=== PATIENT | male | born 1955 | race Caucasian/White ===

== ENCOUNTER 2024-03-25 17:03 | Emergency (ER) | payer OTHER, SELFPAY ==
[2024-03-25 17:08] VITALS: BP 177/92; PULSE 53; RESP 18; TEMP 36.6; O2SAT 97
--- NOTE | 2024-03-25 17:31 | ED_ITS ---
HPI - General Adult General Chief complaint: Urogenital Problems, Male Stated complaint: needs catheter Time Seen by Provider: 03/25/24 17:16 Source: patient Mode of arrival: ambulatory Limitations: no limitations History of Present Illness HPI narrative: 68-year-old male presenting to the ED today requesting Daley catheter placement. Patient states that his senior coldfusion developer said to come to the ER to have this done. I did call the patient's senior coldfusion developer, Dr. Ambriz, who stated that patient was seen today and had a post void residual of 700 mL. She believes that he has BPH that is poorly controlled and causing urinary retention. However an ultrasound done today also showed mild bilateral hydronephrosis and his creatinine went from 1-2.7 in 1 week's time. Patient's doctor states that no repeat labs necessary today as she just did them yesterday and that he should indeed have an indwelling catheter placed. Patient is otherwise stable. Denies abdominal pain. Denies fevers or chills. No nausea or vomiting. Appetite has been normal. Patient is quite anxious about having a Daley placed. Related Data Allergies Allergy/AdvReac Type Severity Reaction Status Date / Time amoxicillin Allergy Unknown Verified 03/25/24 17:16 Penicillins Allergy Unknown Verified 03/25/24 17:16 Review of Systems Status of ROS: Reports: 10 or more systems reviewed and unremarkable except as noted in History and below Exam Narrative: Exam Narrative: Well-nourished well-developed patient, slightly anxious. Alert and oriented. Answers questions appropriately. Mood and affect are appropriate. Thoughts are goal oriented and rational. No tangential or magical thinking noted. Patient speaks in full sentences without needing to catch his breath. HEENT: Normocephalic atraumatic. Pupils are equally round reactive to light. Extraocular muscles are intact. Conjunctivae are moist without any icterus noted. Moist mucous membranes. Cardiovascular: Heart is regular rate and rhythm. Lungs: Clear to auscultation bilaterally. Abdomen: Soft and nontender with normal bowel sounds. Abdomen slightly distended. Skin: Well perfused. Const: Vital Signs, click to edit/add: Vital Signs - 24 hr 03/25/24 17:08 Temperature 97.8 F Pulse Rate [Right Pulse Oximeter] 53 L Respiratory Rate 18 Blood Pressure [Ri ght Upper Arm] 177/92 H Pulse Oximetry 97 Oxygen Delivery Me thod Room Air Course Course ED Course: Indwelling catheter placed by nursing and daley education provided. Placement of Daley was difficult. 1200 mL of urine was removed once Daley was placed. Vital Signs Vital signs: Initial Vital Signs Temperature 97.8 F 03/25/24 17:08 Temperature Source Temporal Artery Scan 03/25/24 17:08 Pulse Rate 53 L 03/25/24 17:08 Pulse Rhythm Regular 03/25/24 17:08 Pulse Strength 3+ Normal 03/25/24 17:08 Respiratory Rate 18 03/25/24 17:08 Blood Pressure 177/92 H 03/25/24 17:08 Blood Pressure Mean 120 H 03/25/24 17:08 Blood Pressure Position Sitting 03/25/24 17:08 Pulse Oximetry 97 03/25/24 17:08 Oxygen Delivery Method Room Air 03/25/24 17:08 Vital Signs Temperature 97.8 F 03/25/24 17:08 Pulse Rate 53 L 03/25/24 17:08 Respiratory Rate 18 03/25/24 17:08 Blood Pressure 177/92 H 03/25/24 17:08 Pulse Oximetry 97 03/25/24 17:08 Oxygen Delivery Method Room Air 03/25/24 17:08 Temperature 97.8 F 03/25/24 17:08 Pulse Rate 53 L 03/25/24 17:08 Respiratory Rate 18 03/25/24 17:08 Blood Pressure 177/92 H 03/25/24 17:08 Pulse Oximetry 97 03/25/24 17:08 Oxygen Delivery Method Room Air 03/25/24 17:08 Medical Decision Making MDM Narrative Medical decision making narrative: Urinary retention. Daley placed. Follow-up with senior coldfusion developer and urology team. Discharge Plan Discharge Clinical Impression: Acute urinary retention Patient Disposition: Home, Self-Care Condition: Improved Additional Instructions: Follow-up with your senior coldfusion developer as scheduled. Stand Alone Forms: [email or web address] Info Instructions
[2024-03-25] MEDS: lidocaine HCL 2 % JELLY (TOP) STERILE 6 ML UR (17:52)
== END 2024-03-25 18:29 | disposition home or self-care (01) ==
PROVIDERS: Emergency Provider Family Medicine
DX: R33.9 Retention of urine, unspecified (principal)
CPT/HCPCS: 51702; 99283

== ENCOUNTER 2024-04-13 13:34 | Emergency (ER) | payer OTHER, SELFPAY ==
[2024-04-13 13:38] VITALS: BP 169/89; PULSE 66; RESP 20; TEMP 37.2; O2SAT 98; BMI 28.5
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
[2024-04-13] MEDS: LORazepam 2 MG/ML inj 1 MG IM (14:27)
[2024-04-13 14:35] VITALS: BP 135/81; PULSE 61; RESP 18; TEMP 36.7; O2SAT 99
[2024-04-13] MEDS: lidocaine HCL 2 % JELLY (TOP) STERILE 6 ML UR (14:55)
[2024-04-13 15:53] VITALS: BP 135/81; PULSE 61; RESP 18; TEMP 36.7
== END 2024-04-13 15:45 | disposition home or self-care (01) ==
PROVIDERS: Emergency Provider Family Medicine; PCP Pediatrics
DX: R33.9 Retention of urine, unspecified (principal)
CPT/HCPCS: 51702; 96372; 99283; 99284; J2060